=== PATIENT | male | born 1980 | race African-American/Black ===

== ENCOUNTER 2017-05-29 01:35 | Emergency (ER) | payer MEDICAID ==
[2015-01-29 12:06] VITALS: BMI 24.9
[~2017-05-29 01:35] MED LIST: HYDROCODONE-APA1 TAB PO
== END 2017-05-29 03:30 | disposition home or self-care (01) ==
LOC: D.ER 01:35
DX: K04.7 Periapical abscess without sinus (principal); F17.200 Nicotine dependence, unspecified, uncomplicated

== ENCOUNTER 2018-07-03 20:39 | Emergency (ER) | payer MEDICAID ==
[~2018-07-03] VITALS: Ht 172.7 cm; Wt 72.7 kg
[2018-07-03 20:47] VITALS: Ht 172.7 cm; Wt 72.7 kg
[2018-07-03 22:13] LABS: BASOPHILS 0.2 % (0-2); EOSINOPHILS 0.5 % (0-7); HEMATOCRIT 42.9 % (42.0-54.0); HEMOGLOBIN 14.8 g/dL (13.5-17.5); IMMATURE GRANULOCYTES 0.1 % (0-5); LYMPHOCYTES 17.9 % (15-50); MCH 30.8 pg (26.0-34.0); MCHC 34.5 g/dL (31.0-37.0); MCV 89.4 fL (80.0-100.0); MEAN PLATELET VOLUME 8.8 fL (7.4-10.4); MONOCYTES 7.2 % (2-11); NEUTROPHILS 74.1 % (40-80); PLATELET COUNT 195 10x3/uL (130-400); WBC 10.8 10x3/uL (4.8-10.8)
[2018-07-03 22:26] LABS: ALBUMIN 3.8 g/dL (3.4-5.0); ALKALINE PHOSPHATASE 79 U/L (46-116); ALT (SGPT) 19 U/L (10-68); BILIRUBIN - TOTAL 0.29 mg/dL (0.2-1.3); CALC OSMOLALITY 281 mosm/kg (275-300); CALCIUM 8.6 mg/dL (8.5-10.1); CARBON DIOXIDE 28.4 mmol/L (21.0-32.0); CHLORIDE - SERUM 107 mmol/L (98-107); CREATININE - SERUM 1.2 mg/dL (0.6-1.3); GLUCOSE 91 mg/dL (74-106); PROTEIN - SERUM 6.7 g/dL (6.4-8.2); SODIUM 142 mmol/L (136-145); UREA NITROGEN 10 mg/dL (7-18); eGFR NON AFRICAN AMERICAN 73 mL/min (90-120)
[2018-07-03 22:30] LABS: AMYLASE - SERUM 65 U/L (25-115); LIPASE 75 U/L (73-393); TROPONIN-I < 0.017 ng/mL (0.000-0.060)
[2018-07-03] MEDS ORDERED: BENTYL 20 MG TA20 MG PO (23:51)
[2018-07-03] MEDS ORDERED: ZOFRAN ODT4 MG/UDTAB PO (23:51)
[2018-07-04 00:08] VITALS: BP 146/77
== END 2018-07-04 00:10 | disposition home or self-care (01) ==
LOC: D.ER 20:39
PROVIDERS: Family Medicine
DX: A08.4 Viral intestinal infection, unspecified (principal); R11.2 Nausea with vomiting, unspecified

== ENCOUNTER 2019-01-22 09:34 | Emergency (ER) | payer MEDICAID ==
[~2019-01-22] VITALS: Ht 172.7 cm; Wt 72.7 kg
[~2019-01-22 09:34] MED LIST changes: +BENTYL 20 MG TA20 MG PO; +ZOFRAN ODT4 MG/UDTAB PO
[2019-01-22 09:52] VITALS: Ht 172.7 cm; Wt 72.7 kg
[2019-01-22 10:34] LABS: BASOPHILS 0.1 % (0-2); EOSINOPHILS 0.7 % (0-7); HEMATOCRIT 43.6 % (42.0-54.0); HEMOGLOBIN 15.9 g/dL (13.5-17.5); IMMATURE GRANULOCYTES 0.3 % (0-5); LYMPHOCYTES 10.7 % (15-50); MCH 30.9 pg (26.0-34.0); MCHC 36.5 g/dL (31.0-37.0); MCV 84.7 fL (80.0-100.0); MEAN PLATELET VOLUME 8.9 fL (7.4-10.4); MONOCYTES 6.8 % (2-11); NEUTROPHILS 81.4 % (40-80); PLATELET COUNT 176 10x3/uL (130-400); RBC 5.15 10x6/uL (4.20-6.10); RDW 13.1 % (11.5-14.5); WBC 16.7 10x3/uL (4.8-10.8)
[2019-01-22 12:03] LABS: ALBUMIN 3.9 g/dL (3.4-5.0); ANION GAP 15.5 mmol/L (8-16); BILIRUBIN - TOTAL 0.63 mg/dL (0.2-1.3); CALCIUM 8.9 mg/dL (8.5-10.1); CARBON DIOXIDE 24.6 mmol/L (21.0-32.0); CREATININE - SERUM 1.2 mg/dL (0.6-1.3); POTASSIUM - SERUM 4.1 mmol/L (3.5-5.1); PROTEIN - SERUM 7.2 g/dL (6.4-8.2)
[2019-01-22] MEDS ORDERED: TYLENOL W/CODEI1 TAB PO (12:20)
[2019-01-22] MEDS ORDERED: DOXYCYCLINE HY100 M2 PO (12:20)
[2019-01-22 13:07] VITALS: BP 132/75
== END 2019-01-22 13:09 | disposition home or self-care (01) ==
LOC: D.ER 09:34
PROVIDERS: Family Medicine
DX: J20.9 Acute bronchitis, unspecified (principal); F17.200 Nicotine dependence, unspecified, uncomplicated